=== PATIENT | male | born 1960 | race Caucasian/White ===

== ENCOUNTER 2018-12-24 15:18 | Emergency (ER) | payer BC ==
[~2018-12-24] VITALS: Ht 182.9 cm; Wt 104.3 kg
[2018-12-24 15:20] VITALS: BP 129/87
--- NOTE | 2018-12-24 15:37 | NUR ---
58/M PRESENTS TO ED, C/O EPISODES OF VOMITING X6 TODAY, AND 4 DAYS AGO. STATED THAT HE STARTED ABX Z-PACK 4 DAYS AGO FOR SORE THROAT WITH IMPROVEMENT, LAST DOSE YESTERDAY, DID NOT TAKE TODAY'S DOSE. PT REPORTS DIFFUSE ABD PAIN. DENIES FEVER, DIARRHEA, CONSTIPATION OR DYSURIA. PT AOX4, GCS 15, RR EVEN AND UNLABORED. LUNG SOUNDS CLEAR BL. BS ACTIVE X4, ABD FIRM ROUND MILDLY TENDER DIFFUSELY. DENIES MED HX RX Z-PACK, TUSSIN
--- NOTE | 2018-12-24 15:44 | NUR ---
Dr. Valentine evaluating patient at bedside.
[2018-12-24] MEDS ORDERED: NACL 0.9% 1,000 ML IV ONE (15:47)
[2018-12-24] MEDS ORDERED: NACL 0.9% 1,000 ML IV SCH (15:47)
[2018-12-24] MEDS ORDERED: MORPHINE SULFATE 4 MG/ML SYR IVP ONE (15:50)
[2018-12-24] MEDS ORDERED: FAMOTIDINE 20 MG/2 ML VIAL IVP ONE (15:50)
[2018-12-24] MEDS ORDERED: ONDANSETRON 4 MG/2 ML VIAL IVP ONE (15:50)
[2018-12-24] MEDS ORDERED: KETOROLAC 30 MG/ML VIAL IVP ONE (15:50)
--- NOTE | 2018-12-24 16:06 | NUR ---
EKG completed at bedside by EMT.
[2018-12-24 16:42] LABS: APPEARANCE,URINE HAZY (CLEAR); BILIRUBIN,URINE 1+ (NEGATIVE); BLOOD, URINE NEGATIVE (NEGATIVE); COLOR,URINE YELLOW (YELLOW); LEUKOCYTE ESTERASE ,URINE NEGATIVE (NEGATIVE); NITRITE, URINE NEGATIVE (NEGATIVE); UGLUCOSE NEGATIVE (NEGATIVE)
[2018-12-24 16:46] LABS: BASOPHILS % (AUTO) 0.3 % (0.0-2.0); EOSINOPHILS % (AUTO) 0.3 % (0.0-4.0); HEMATOCRIT 48.6 % (36-52); HEMOGLOBIN 16.1 g/dL (12.0-18.0); LYMPHOCYTES # (AUTO) 1.1 K/uL (2.0-11.5); LYMPHOCYTES % (AUTO) 9.4 % (20.5-51.1); MEAN CORPUSCULAR HEMOGLOBIN 29 pg (27-31); MEAN CORPUSCULAR HGB CONC 33 g/dL (33-37); MEAN CORPUSCULAR VOLUME 85.9 fL (80-94); MONOCYTES # (AUTO) 0.7 K/uL (0.8-1.0); MONOCYTES % (AUTO) 5.8 % (1.7-9.3); NEUTROPHILS # (AUTO) 9.7 K/uL (1.8-7.7); NEUTROPHILS % (AUTO) 84.2 % (42.2-75.2); PLATELET COUNT (AUTO) 216 K/uL (140-450); RED BLOOD CELL COUNT(AUTO) 5.66 MIL/uL (4.20-6.10); RED CELL DISTRIBUTION WIDTH 14.3 % (11.6-13.7); WHITE BLOOD COUNT (AUTO) 11.5 K/uL (4.8-10.8)
[2018-12-24 16:57] LABS: ANION GAP 13.5 (8-16); CARBON DIOXIDE 27.9 mmol/L (21-32); CREATININE 1.1 mg/dL (0.7-1.3); POTASSIUM 3.4 mmol/L (3.5-5.1)
[2018-12-24 17:02] LABS: ALBUMIN 4.2 g/dL (3.4-5.0); TOTAL BILIRUBIN 0.5 mg/dL (0.0-1.0)
--- NOTE | 2018-12-24 17:12 | NUR ---
Dr. Valentine re-evaluating patient at bedside.
--- NOTE | 2018-12-24 17:13 | NUR ---
Patient taken to CT scan via wheelchair by tech.
[2018-12-24 19:53] VITALS: BP 130/87
--- NOTE | 2018-12-24 19:53 | NUR ---
Patient discharged with v/s stable. Written and verbal after care instructions given and explained. Patient alert, oriented and verbalized understanding of instructions. Ambulatory with steady gait. All questions addressed prior to discharge. ID band removed. Patient advised to follow up with PMD. Rx of REGLAN, PROTONIX given. Patient educated on indication of medication including possible reaction and side effects. Opportunity to ask questions provided and answered.
== END 2018-12-24 19:53 | disposition home or self-care (01) ==
LOC: MED 15:18
DX: K56.7 Ileus, unspecified (principal)
CPT/HCPCS: 36415; 74177; 80053; 81003; 82150; 83690; 84484; 85025; 93005; 96361; 96374; 96375; 99284; J1885; J2270; J2405; J3490; J7030; Q9967

== ENCOUNTER 2018-12-25 15:30 | Inpatient (IN) | payer BC ==
[~2018-12-25] VITALS: Ht 180.3 cm; Wt 103.9 kg
[2018-12-25 15:32] VITALS: BP 155/77
--- NOTE | 2018-12-25 15:38 | NUR ---
PT AMBULATED TO ER BED 04
--- NOTE | 2018-12-25 15:40 | NUR ---
BIB SELF C/O EPIGASTRIC PAIN, 05/08, [facility] N/V/D. WAS HERE LAST NIGHT, CT : NORMAL,D/C WITH MEDICATIONS, PT STATED THOSE MEDICATIONS DID NOT WORK, COULD NOT REMEMBER MEDICATIONS NAME AT THIS TIME. PATIENT POSITIONED FOR COMFORT; HOB ELEVATED; BEDRAILS UP X1; BED DOWN.
[2018-12-25] MEDS ORDERED: ONDANSETRON 4 MG/2 ML VIAL IVP ONE (16:30)
[2018-12-25] MEDS ORDERED: NACL 0.9% 1,000 ML IV ONE (16:30)
[2018-12-25] MEDS ORDERED: DICYCLOMINE 20 MG/2 ML VIAL IM ONE (16:30)
[2018-12-25 16:52] LABS: BASOPHILS % (AUTO) 0.4 % (0.0-2.0); EOSINOPHILS % (AUTO) 0.5 % (0.0-4.0); HEMATOCRIT 43.9 % (36-52); HEMOGLOBIN 14.5 g/dL (12.0-18.0); LYMPHOCYTES # (AUTO) 1.7 K/uL (2.0-11.5); LYMPHOCYTES % (AUTO) 19.2 % (20.5-51.1); MEAN CORPUSCULAR HEMOGLOBIN 28 pg (27-31); MEAN CORPUSCULAR HGB CONC 33 g/dL (33-37); MEAN CORPUSCULAR VOLUME 85.7 fL (80-94); MONOCYTES # (AUTO) 0.9 K/uL (0.8-1.0); MONOCYTES % (AUTO) 10.5 % (1.7-9.3); NEUTROPHILS # (AUTO) 6.2 K/uL (1.8-7.7); NEUTROPHILS % (AUTO) 69.4 % (42.2-75.2); PLATELET COUNT (AUTO) 203 K/uL (140-450); RED BLOOD CELL COUNT(AUTO) 5.12 MIL/uL (4.20-6.10); RED CELL DISTRIBUTION WIDTH 14.3 % (11.6-13.7); WHITE BLOOD COUNT (AUTO) 8.9 K/uL (4.8-10.8)
[2018-12-25 17:04] LABS: ANION GAP 9.5 (8-16); CARBON DIOXIDE 29.5 mmol/L (21-32); CREATININE 1.1 mg/dL (0.7-1.3)
[2018-12-25 17:10] LABS: ALBUMIN 3.6 g/dL (3.4-5.0); TOTAL BILIRUBIN 0.6 mg/dL (0.0-1.0)
[2018-12-25] MEDS ORDERED: METOCLOPRAMIDE 10 MG/2 ML INJ VIAL IVP ONE (17:25)
[2018-12-25] MEDS ORDERED: MORPHINE SULFATE 4 MG/ML SYR IVP ONE ×2 (17:25→19:00)
[2018-12-25] MEDS ORDERED: PANTOPRAZOLE 40 MG INJ VIAL IVP ONE (19:00)
[2018-12-25] MEDS ORDERED: NACL 0.9% 1,000 ML IV SCH (19:04)
[2018-12-25] MEDS ORDERED: ACETAMINOPHEN 325 MG TAB PO PRN (19:05)
[2018-12-25] MEDS ORDERED: DOCUSATE SODIUM 100 MG GELCAP PO PRN (19:05)
[2018-12-25] MEDS ORDERED: ONDANSETRON 4 MG/2 ML VIAL IM/IVP PRN (19:05)
[2018-12-25] MEDS ORDERED: HYDROcodone/APAP 7.5/325 MG 1 TAB PO PRN (19:05)
--- NOTE | 2018-12-25 19:12 | NUR ---
Pt report given to SEAMUS BARTLETT. Transfer of care at this time.
--- NOTE | 2018-12-25 19:21 | NUR ---
Bedside report recieved from DHRUV Thornton. Transfer of care at this time.
--- NOTE | 2018-12-25 19:40 | NUR ---
Patient will be admitted to care of Dr Clifford. Admited to [facility]. Will go to room 124A. Belongings list completed. VSS at time of transfer. Verbal report attemped to be given to [facility]ge nurse who was not willing to recieve report. Handoff SBAR sheet left at nursing station. Pt assisted to room assignment. Bed left in lowest postion. Family at bedside.
--- NOTE | 2018-12-25 19:48 | NUR ---
RECEIVED REPORT FROM CONSERVATION BIOLOGY PROFESSOR, PATIENT IN STABLE CONDITION, AMBULATORY, 20 G PERIPHERAL IV IN THE RIGHT AC.
[2018-12-25 19:56] LABS: CHOL/HDL RATIO 5.2 (1-4.5); FREE T4 (FREE THYROXINE) 0.93 ng/dL (0.76-1.46); MAGNESIUM 2.1 mg/dL (1.8-2.4); PHOSPHORUS 2.5 mg/dL (2.5-4.9); THYROID STIMULATING HORMONE 1.89 uIU/mL (0.34-3.74)
[2018-12-25 19:57] LABS: PROTHROMBIN TIME 10.2 secs (10.8-13.4)
[2018-12-25] MEDS: DEXT 5% /NACL 0.9% 1,000 ML IV SCH (21:21)
--- NOTE | 2018-12-25 21:21 | NUR ---
PATIENT C/O 7/10 EPIGASTRIC PAIN. WILL MEDICATE WITH PRN MEDICATION.
[2018-12-25] MEDS: MORPHINE SULFATE 2 MG/ML SYR IVP PRN (21:22)
--- NOTE | 2018-12-25 22:22 | NUR ---
PATIENT STATES PAIN HAS IMPROVED. WILL CONTINUE TO MONITOR.
[2018-12-25 23:07] LABS: APPEARANCE,URINE SLIGHTLY CLOUDY (CLEAR); BILIRUBIN,URINE NEGATIVE (NEGATIVE); BLOOD, URINE NEGATIVE (NEGATIVE); COLOR,URINE YELLOW (YELLOW); LEUKOCYTE ESTERASE ,URINE NEGATIVE (NEGATIVE); NITRITE, URINE NEGATIVE (NEGATIVE); PH,URINE 6.5 (5.0-9.0); UGLUCOSE NEGATIVE (NEGATIVE)
[2018-12-25 23:14] LABS: BARBITURATE, URINE NEG. ng/ml (NEG <=200); BENZODIAZEPINE, URINE NEG. ng/mL (NEG <=200); CANNABINOID, URINE NEG. ng/mL (NEG <=50); COCAINE, URINE NEG. ng/mL (NEG <=300); PHENCYCLIDINE SCREEN,URINE NEG. ng/mL (NEG <=25)
[2018-12-25 23:26] LABS: OPIATE, URINE NEG. ng/mL (NEG <=2000)
--- NOTE | 2018-12-26 00:45 | NUR ---
SCD'S ARRIVED TO UNIT. PLACED ON PATIENT. EDUCATED PATIENT ON NEED FOR SCD'S AND TO USE CALL LIGHT IF HE NEEDS TO GET OUT OF BED. BED LOW, CALL LIGHT IN REACH. SAFETY PRECAUTIONS IN PLACE.
--- NOTE | 2018-12-26 02:50 | NUR ---
PATIENT SLEEPING. NO SIGNS OF DISTRESS ON RA.
[2018-12-26] MEDS: MORPHINE SULFATE 2 MG/ML SYR IVP PRN (03:12)
--- NOTE | 2018-12-26 03:13 | NUR ---
PATIENT C/O 03/07 PAIN. MEDICATED PER PRN ORDERS.
--- NOTE | 2018-12-26 05:30 | NUR ---
PATIENT SLEEPING IN BED. NO SIGNS OF DISTRESS ON RA.
--- NOTE | 2018-12-26 07:24 | NUR ---
GAVE BEDSIDE REPORT TO DAY SHIFT RN, ENDORSING PATIENT IN STABLE CONDITION.
--- NOTE | 2018-12-26 07:25 | NUR ---
RECEIVED PT REPORT FROM COIN MACHINE OPERATOR NURSE, PT IS AWAKE AND ALERT IN BED, NO S/S OF ACUTE DISTRESS OR SOB NOTED. NG TUBE INSERTED ON INTERMITTENT SUCTION. IV SITE NOTED ON THE RAC 20 G, INFUSING D5NS 80 ML/HR. PT CAN ONLY HAVE ICE CHIPS, AND NO FOOD FOR BOWEL REST. SCD'S ARE ON. CALL LIGHT IS WITHIN REACH. WILL CONTINUE TO MONITOR.
[2018-12-26 08:00] VITALS: BP 135/81
--- NOTE | 2018-12-26 08:30 | NUR ---
PATIENT HAS BEEN SCREENED AND CATEGORIZED MODERATE NUTRITION RISK. PATIENT WILL BE SEEN WITHIN 3-5 DAYS OF ADMISSION. 12/28/18[address]
[2018-12-26] MEDS: DEXT 5% /NACL 0.9% 1,000 ML IV SCH ×2 (08:55→21:25)
[2018-12-26] MEDS: LACTOBACILLUS RHAMNOSUS GG 1 EACH CAP PO SCH (09:59)
--- NOTE | 2018-12-26 13:00 | NUR ---
PT HAVING ABD XRAY FOLLOW-THROUGH AT THIS TIME
--- NOTE | 2018-12-26 14:42 | NUR ---
PT RESTING COMFORTABLY AT THIS TIME, NO S/S OF ANY ACUTE DISTRESS NOTED. THE NGT IS OFF SUCTION RIGHT NOW FOR THE ABD XRAY FOLLOW-THROUGH.
--- NOTE | 2018-12-26 14:42 | NUR ---
I MET PATIENT AT BEDSIDE AND EXPLAINED TO PATIENT THAT I WILL OBTAIN AND VERIFY INFORMATION WITH HIM, AND PATIENT AGREED. PATIENT LIVES AT HOME WITH HIS AND FAMILY AND PLANS TO RETURN THERE UPON DISCHARGE. PATIENT IS INDEPENDENT WITH ADLS AND HE DOES NOT TAKE ANY MEDICATIONS AT HOME. PATIENT DOES NOT HAVE A PCP AT THIS TIME . INSTRUCTED PATIENT TO CALL INSURANCE TO OBTAIN PCP ASSIGNED TO HIM. INSTRUCTED PATIENT TO MAKE A FOLLOW-UP VISIT AFTER DISCHARGE HERE IN THE HOSPITAL AND TO PROVIDE DISCHARGE INSTRUCTIONS TO HIS PCP. PATIENT VERBALIZED UNDERSTANDING. PATIENT WAS NOT RECEIVING ANY HOME HEALTH SERVICES PRIOR TO HOSPITALIZATION AND WAS NOT USING ANY DME AT HOME. PATIENT DOES NOT HAVE ANY ADVANCE DIRECTIVE AT THIS TIME. ADVANCE DIRECTIVE PACKET GIVEN TO PATIENT. PATIENT HAS NO QUESTIONS OR CONCERN AT THIS TIME. PATIENT VERBALIZED THAT HE IS HAPPY OF HIS CARE HERE IN [facility]. EMPHASIZED TO PATIENT TO LET US KNOW IF NEEDED HELP, OR IF THERE IS ANY QUESTIONS AND CONCERNS WHILE HE IS HERE IN THE HOSPITAL.
[2018-12-26 16:00] VITALS: BP 144/82
--- NOTE | 2018-12-26 18:37 | NUR ---
PT'S NGT OUTPUT HAS NOT INCREASED SINCE THE LAST SHIFT, STAYING AT 200 ML, THE INTERMITTENT SUCTION HAS BEEN OFF FOR MOST OF THE DAY FOR SBO XRAY FOLLOW-THROUGH. I CLARIFIED WITH RADIOLOGY THAT THE LAST XRAY WILL BE TAKEN AT 19:45, AFTER WHICH THE INTERMITTENT SUCTION CAN BE TURNED BACK ON.
--- NOTE | 2018-12-26 19:25 | NUR ---
PT ENDORSED TO ENRICHMENT TEACHER IN STABLE CONDITION.
--- NOTE | 2018-12-26 19:26 | NUR ---
RECEIVED BEDSIDE REPORT. PATIENT STABLE. NO SIGNS OF DISTRESS ON RA. NG SUCTION IS OFF DUE TO PENDING X-RAY PROCEDURE.
--- NOTE | 2018-12-26 22:10 | NUR ---
SPOKE TO DR. LIRA REGARDING SMALL BOWEL FOLLOW THROUGH RESULTS. NO BOWEL OBSTRUCTION PRESENT. PER DR. LIRA, RESUME NG SUCTION AT LOW INTERMITTENT. IF NO FURTHER OUTPUT IN 2 HOURS DC NG TUBE.
[2018-12-27] VITALS: BP 149/80
--- NOTE | 2018-12-27 | NUR ---
SPOKE TO DR. LIRA, NO FURTHER OUTPUT FROM NG TUBE. PER DR. LIRA, DC NG TUBE AND PLACE PATIENT ON FULL LIQUID DIET.
--- NOTE | 2018-12-27 00:15 | NUR ---
NG TUBE DISCONTINUED, TIP INTACT. PATIENT TOLERATED REMOVAL WELL. PROVIDED FULL LIQUID FOOD CHOICES AND WILL MONITOR PATIENT FOR TOLERATION OF DIET CHANGE.
[2018-12-27] MEDS: DEXT 5% /NACL 0.9% 1,000 ML IV SCH (03:18)
--- NOTE | 2018-12-27 03:18 | NUR ---
PATIENT AMBULATED TO BATHROOM. RETURNED TO BED. RESTING COMFORTABLY. SAFETY PRECAUTIONS IN PLACE.
[2018-12-27 06:29] LABS: BASOPHILS % (AUTO) 0.4 % (0.0-2.0); EOSINOPHILS # (AUTO) 0.1 K/uL (0-0.4); EOSINOPHILS % (AUTO) 1.3 % (0.0-4.0); HEMATOCRIT 40.1 % (36-52); HEMOGLOBIN 14.2 g/dL (12.0-18.0); LYMPHOCYTES # (AUTO) 1.7 K/uL (2.0-11.5); LYMPHOCYTES % (AUTO) 20.8 % (20.5-51.1); MEAN CORPUSCULAR HEMOGLOBIN 30 pg (27-31); MEAN CORPUSCULAR HGB CONC 36 g/dL (33-37); MEAN CORPUSCULAR VOLUME 85.1 fL (80-94); MONOCYTES # (AUTO) 0.9 K/uL (0.8-1.0); MONOCYTES % (AUTO) 11.9 % (1.7-9.3); NEUTROPHILS # (AUTO) 5.2 K/uL (1.8-7.7); NEUTROPHILS % (AUTO) 65.6 % (42.2-75.2); PLATELET COUNT (AUTO) 196 K/uL (140-450); RED BLOOD CELL COUNT(AUTO) 4.72 MIL/uL (4.20-6.10); RED CELL DISTRIBUTION WIDTH 14.2 % (11.6-13.7); WHITE BLOOD COUNT (AUTO) 7.9 K/uL (4.8-10.8)
--- NOTE | 2018-12-27 06:45 | NUR ---
DR. MENDOZA CALLED, WANTS PATIENT TO REMAIN NPO. WILL NOTIFY PATIENT. PATIENT HAD 2 FULL LIQUID ITEMS NEAR MIDNIGHT AND HAS NO ABD PAIN.
[2018-12-27 06:48] LABS: ANION GAP 9.3 (8-16); CARBON DIOXIDE 29.8 mmol/L (21-32); POTASSIUM 4.1 mmol/L (3.5-5.1)
--- NOTE | 2018-12-27 07:27 | NUR ---
ENDORSED PATIENT TO DAY SHIFT RN IN STABLE CONDITION. NO SIGNS OF DISTRESS ON RA, SAFETY PRECAUTIONS IN PLACE.
--- NOTE | 2018-12-27 07:30 | NUR ---
RECEIVED HANDOFF REPORT FROM GLAZIER SUPERVISOR NURSE. PT IS AWAKE AND STABLE. NO SIGNS OF DISTRESS. ALL SAFETY MEASURES ARE IN PLACE. WILL CONTINUE TO MONITOR.
[2018-12-27 08:00] VITALS: BP 140/86
--- NOTE | 2018-12-27 09:00 | NUR ---
PT RECEIVED ORDERS FOR REGULAR DIET. HAD FNS BRING TRAY FOR PT. PT TOLERATED REGULAR DIET WELL WITH NO COMPLAINTS. WILL CONTINUE TO ASSESS.
[2018-12-27] MEDS: LACTOBACILLUS RHAMNOSUS GG 1 EACH CAP PO SCH (09:29)
[2018-12-27] MEDS ORDERED: DOCU-299 PO (10:31)
[2018-12-27] MEDS ORDERED: MIRABULK PO (10:31)
--- NOTE | 2018-12-27 11:00 | NUR ---
FREQUENT ROUNDING. PT IS STABLE AND IN NO APPARENT DISTRESS. ALL SAFETY MEASURES ARE IN PLACE. WILL CONTINUE TO MONITOR.
--- NOTE | 2018-12-27 12:45 | NUR ---
EDUCATED PATIENT ON DISEASE PROCESS, ABN S/SX, WHEN TO GO TO THE ER, EDUCATED ON MEDS, MEDS SENT TO PHARMACY. EDUCATED ON FOLLOW UP W PCP, PATIENT STATED HE WILL BUT HE NEEDS TO CHANGE THE APPOINTMENT. PATIENT NOT A CANDIDATE FOR PNA, FLU NOT IN [place]. PATIENT VERBALIZED UNDERSTANDING AND SIGNED D/C PAPERWORK. PATIENTS IV REMOVED, TIP INTACT. ID BANDS REMOVED. PATIENT LEFT IN STABLE CONDITION
== END 2018-12-27 12:45 | disposition home or self-care (01) | DRG 390 ==
LOC: MED 15:30 → MTU 19:04
PROVIDERS: ADMIT General Practice; ATTEND General Practice
PROC: 0D9670Z Drainage of Stomach with Drainage Device, Via Natural or Artificial Opening (ICD-10-PCS; principal; 2018-12-25)
DX: K56.609 Unspecified intestinal obstruction, unspecified as to partial versus complete obstruction (principal); I10 Essential (primary) hypertension; K57.90 Diverticulosis of intestine, part unspecified, without perforation or abscess without bleeding; E78.2 Mixed hyperlipidemia; Z83.3 Family history of diabetes mellitus; Z82.49 Family history of ischemic heart disease and other diseases of the circulatory system; Z80.0 Family history of malignant neoplasm of digestive organs
CPT/HCPCS: 36415; 71045; 74250; 80048; 80053; 80305; 81003; 82140; 83036; 83605; 83690; 83735; 83880; 84100; 84439; 84443; 85025; 85610; 85730; 87081; 96361; 96372; 96374; 96375; 99285; C9113; J0500; J2270; J2405; J2765; J7042; Q0092